=== PATIENT | male | born 1945 | race Caucasian/White ===

== ENCOUNTER 2024-02-18 07:20 | Day surgery (SDC) | payer MEDICARE, SELFPAY ==
--- NOTE | 2024-02-17 12:41 | HO.ANESPROP2 ---
Documented by User: Swati Mcdowell NP 02/17/24 12:49 HPI - Anesthesia Eval Consult details Narrative: 79yo M for Colonoscopy Anesthesia Pre-Procedure Meds Is the patient on any of the following meds?: SGLT2 Inhib PMFSH Past Medical History Medical History Mitral annular calcification Mitral stenosis Hyperlipidemia HTN (hypertension) Chronic kidney disease, stage 3 DM type 2 (diabetes mellitus, type 2) Surgical History Surgical History Hx of tonsillectomy History of total right knee replacement (TKR) Hx of cholecystectomy H/O colonoscopy Social History Social History Patient Tobacco Use Status: Never used Tobacco Use of substances other than those prescribed or required for medical reasons: No Are you DNR?: No Advance Directives: No Advance Directives Information Provided: Yes Meds Allergies Allergy/AdvReac Type Severity Reaction Status Date / Time No Known Allergies Allergy Verified 02/17/24 11:20 Home Medications ?Medication ?Instructions ?Recorded ?Confirmed ?Last Taken ?Type Aspir-81 81 mg PO DAILY 02/17/24 02/17/24 Unknown History carvedilol 6.25 mg tablet 6.25 mg PO BID 02/17/24 02/18/24 02/18/24 History cholecalciferol (vitamin D3) 25 mcg PO DAILY 02/17/24 02/17/24 Unknown History lisinopril 5 mg tablet 5 mg PO DAILY 02/17/24 02/17/24 Unknown History pioglitazone 30 mg tablet 30 mg PO DAILY 02/17/24 02/17/24 Unknown History simvastatin 20 mg tablet 20 mg PO QPM 02/17/24 02/17/24 Unknown History sitagliptin phosphate 100 mg 100 mg PO DAILY 02/17/24 02/17/24 Unknown History tablet (Januvia) Exam Pertinent Lab Results Pertinent Lab Results: CMP 09/2023 [place], Creat = 1.4 Narrative Narrative: EKG 09/2023 NSR ECHO 06/2023 Summary Normal left ventricular size and function with ejection fraction of 60-65%. No focal wall motion abnormalities. The left ventricular wall thickness is moderately increased. Normal right ventricular size and function. Moderate mitral stenosis due to posterior mitral annular calcification (mean gradient 6 mmHg at HR 86 bpm). Assessment and Plan Assessment Anesthesia Assessment: Chart Reviewed Documented by User: Hoa Payne MD 02/18/24 08:04 [facility] Past Medical History Medical History Mitral annular calcification Mitral stenosis Hyperlipidemia HTN (hypertension) Chronic kidney disease, stage 3 DM type 2 (diabetes mellitus, type 2) Family History Family history of problems with anesthesia: No Surgical History Surgical History Hx of tonsillectomy History of total right knee replacement (TKR) Hx of cholecystectomy H/O colonoscopy History of Problems with Anesthesia: No Social History Social History Patient Tobacco Use Status: Never used Tobacco Use of substances other than those prescribed or required for medical reasons: No Are you DNR?: No Advance Directives: No Advance Directives Information Provided: Yes Meds Allergies Allergy/AdvReac Type Severity Reaction Status Date / Time No Known Allergies Allergy Verified 02/17/24 11:20 Home Medications ?Medication ?Instructions ?Recorded ?Confirmed ?Last Taken ?Type Aspir-81 81 mg PO DAILY 02/17/24 02/17/24 Unknown History carvedilol 6.25 mg tablet 6.25 mg PO BID 02/17/24 02/18/24 02/18/24 History cholecalciferol (vitamin D3) 25 mcg PO DAILY 02/17/24 02/17/24 Unknown History lisinopril 5 mg tablet 5 mg PO DAILY 02/17/24 02/17/24 Unknown History pioglitazone 30 mg tablet 30 mg PO DAILY 02/17/24 02/17/24 Unknown History simvastatin 20 mg tablet 20 mg PO QPM 02/17/24 02/17/24 Unknown History sitagliptin phosphate 100 mg 100 mg PO DAILY 02/17/24 02/17/24 Unknown History tablet (Januvia) Exam Airway Mallampati Class: III TM Dist: >3cm Neck ROM: Full Heart: rrr Lungs: cta Assessment and Plan Assessment Anesthesia Assessment: Anesthesia Plan Discussed Final Anesthetic Review Family History of Problems with Anesthesia: No History of Problems with Anesthesia: No NPO: Yes ASA Class: III Final Preanesthetic Review: No Changes in Pt Med Stat, Meds/Allgs Chart Reviewed, Consent Obtained/Reviewed and Anes Risks/Benef Reviewed Patient Risk: Intermediate Procedure Risk: Low Anesthetic Plan Anesthetic Plan: MAC: Disposition: Standard PACU
[2024-02-18 07:37] VITALS: BP 136/74; PULSE 82; RESP 16; TEMP 36.4; O2SAT 99; BMI 31.2
[2024-02-18] MEDS: Lactated Ringers 1,000 ML 100 ML IVCONT (07:51)
[2024-02-18 07:58] LABS: Glucose, Whole Blood 142 mg/dL (60-115)
--- NOTE | 2024-02-18 08:27 | MHC.SHP ---
Pre-Procedural Eval Section A - 24 Hr Update-Section A only Date of Service: 02/18/24 The patient is an INPATIENT: No Changes since office visit: No Cold of Flu in the past 2 weeks, No New Medical Problems, No Changes in Medication and No Patient answered all questions The patient has been examined within 24 hours of the surgical procedure. The History & Physical has been completed within 30 days and I have reviewed it.: Yes Section B - Complete if H&P > 30 days Chief Complaint: Encounter for screening for malignant neoplasm of Allergies: Allergies Allergy/AdvReac Type Severity Reaction Status Date / Time No Known Allergies Allergy Verified 02/17/24 11:20 Plan I have reviewed the history and physical and performed a pertinent physical examination on my patient. No changes have occurred unless specified. Time Spent With Patient Time: Total time managing care of this patient today ____ minutes.
[2024-02-18 09:05] VITALS: BP 92/46; PULSE 68; RESP 16; TEMP 36.1; O2SAT 95
--- NOTE | 2024-02-18 09:15 | OP_ITS ---
DATE OF SERVICE: 02/18/2024 SURGEON: Reece Preston MD INDICATIONS: Colon cancer screening and prior history of adenomatous colon polyps. PREOPERATIVE DIAGNOSIS: POSTOPERATIVE DIAGNOSIS: PROCEDURE PERFORMED: Colonoscopy to the terminal ileum. ESTIMATED BLOOD LOSS: COMPLICATIONS: ANESTHESIA: Monitored anesthesia care. ASSISTANTS: SPECIMENS: DESCRIPTION OF PROCEDURE: A history and physical was performed. The risks and benefits of the procedure were explained to the patient and informed consent was obtained. The patient was placed in the left lateral decubitus position. A digital rectal exam was performed and was found to be normal. The Olympus pediatric video colonoscope was introduced into the rectum and advanced to the cecum. The cecum was identified by transillumination, palpation, and identification of ileocecal valve. Examination was performed and the scope was removed. He tolerated the procedure well and was returned to recovery area in stable condition. FINDINGS: The terminal ileum was briefly glimpsed and appeared normal. The visualized colonic mucosa was normal. The quality of prep was good. No polyps were identified. Retroflexed examination showed some moderate-sized internal hemorrhoids. There was mild sigmoid diverticulosis noted with scattered diverticula throughout the remainder of the colon. IMPRESSION: Normal colonoscopy. RECOMMENDATIONS: 1. Follow up as needed. 2. Repeat colonoscopy is recommended in 10 years for average-risk individuals at this age of this patient. I would not recommend routine screening. MD BRENDA Urias/KALLI / [id number]
[2024-02-18 09:20] VITALS: BP 109/54; PULSE 68; RESP 18; TEMP 36.1; O2SAT 100
== END 2024-02-18 09:52 | disposition home or self-care (01) ==
PROVIDERS: PCP Physician Assistant; Visit Provider Internal Medicine Gastroenterology
PROC: 0DJD8ZZ Inspection of Lower Intestinal Tract, Via Natural or Artificial Opening Endoscopic (ICD-10-PCS; CPT 45378; principal; 2024-02-18 09:20)
DX: Z12.11 Encounter for screening for malignant neoplasm of colon (principal); Z86.010 Personal history of colon polyps; K57.30 Diverticulosis of large intestine without perforation or abscess without bleeding; K64.8 Other hemorrhoids; E11.22 Type 2 diabetes mellitus with diabetic chronic kidney disease; I12.9 Hypertensive chronic kidney disease with stage 1 through stage 4 chronic kidney disease, or unspecified chronic kidney disease; N18.30 Chronic kidney disease, stage 3 unspecified; E78.5 Hyperlipidemia, unspecified; I05.0 Rheumatic mitral stenosis; Z79.82 Long term (current) use of aspirin; Z79.84 Long term (current) use of oral hypoglycemic drugs; Z79.899 Other long term (current) drug therapy; Z90.49 Acquired absence of other specified parts of digestive tract; Z98.890 Other specified postprocedural states
CPT/HCPCS: G0105; 82947; J2704